=== PATIENT | female | born 1990 | race Caucasian/White ===

== ENCOUNTER 2019-10-04 12:24 | Outpatient (CLI) | payer OTHER, SELFPAY ==
[2019-10-04 13:04] VITALS: BP 137/87; PULSE 78
[2019-10-04 13:16] VITALS: BP 137/84; PULSE 72
[2019-10-04 13:24] LABS: Basophils Percent Auto 0.3 % (0.2-1.2); Eosinophils Absolute Auto 0.1 K/mm3 (0-0.3); Eosinophils Percent Auto 0.7 % (0-4.4); Hematocrit 36.4 % (37.0-47.0); Hemoglobin 11.8 g/dL (12.0-15.0); Immature Granulocyte Absolute 0.06 K/mm3 (0.00-0.031); Immature Granulocyte Percent A 0.6 % (0-0.5); Lymphocytes Absolute Auto 2.11 K/mm3 (0.9-3.2); Lymphocytes Percent Auto 19.5 % (18.3-44.2); Mean Corpuscular HGB Conc 32.4 g/dl (32-36); Mean Corpuscular Hemoglobin 27.9 pg (26-34); Mean Corpuscular Volume 86.1 fl (80-100); Mean Platelet Volume 11.5 fl (7.4-10.4); Monocytes Absolute Auto 1.2 K/mm3 (0.1-0.6); Monocytes Percent Auto 10.7 % (2.6-8.5); Neutrophils Absolute Auto 7.4 K/mm3 (1.3-6.7); Neutrophils Percent Auto 68.2 % (45.5-73.1); Platelet Count Result 256 k/mm3 (150-375); Red Blood Count 4.23 M/mm3 (4.2-5.4); Red Cell Distribution Width 13.2 % (11.5-14.5); White Blood Count 10.8 K/mm3 (4.5-10.0)
[2019-10-04 13:29] LABS: Add Urine Microscopic? YES; Appearance Urine Clear (Clear); Bacteria Urine Trace /hpf; Bilirubin Urine Negative (Negative); Blood Urine Negative (Negative); Color Urine Yellow (Yellow); Glucose Urine UA Negative (Negative); Ketones Urine Trace mg/dL (Negative); Leukocyte Esterase Ur Negative LEU/UL (NEGATIVE); Mucus Urine Rare /lpf; Nitrate Urine Negative (Negative); Protein Urine Negative (Negative); RBC Urine 0-2 /hpf (0-2); Specific Grav Ur 1.016 (1.001-1.035); Squamous Epithelial Cell Urine Many /hpf (Few); Urobilinogen Urine Negative mg/dL (<2.0); WBC Urine 0-3 /hpf (0-3)
[2019-10-04 13:31] VITALS: BP 134/81; PULSE 71
[2019-10-04 13:36] LABS: Alanine Aminotransferase 17 U/L (4-35); Albumin Level 3.3 g/dL (3.5-5.1); Alkaline Phosphatase 130 U/L (38-126); Aspartate Amino Transferase 30 U/L (14-36); Bilirubin,Total 0.4 mg/dL (0.2-1.3); Blood Urea Nitrogen 5 mg/dL (7-17); Calcium 9.1 mg/dL (8.4-10.2); Carbon Dioxide 21 mmol/L (22-30); Chloride 104 mmol/L (98-107); Estimated Glomerular Filt Rate > 60; Glucose 109 mg/dL (65-105); Potassium 3.7 mmol/L (3.4-5.0); Sodium 134 mmol/L (137-145); Uric Acid 4.2 mg/dL (2.5-7.5)
[2019-10-04 13:44] VITALS: BMI 39.2
[2019-10-04 13:45] VITALS: TEMP 36.6
[2019-10-04 13:46] VITALS: BP 146/87; PULSE 73
[2019-10-04 14:01] VITALS: BP 138/83; PULSE 77
--- NOTE | 2019-10-04 15:20 | P.PNOB_ITS ---
OB - Triage/Final Diagnosis Visit Information Date of evaluation: 10/04/19 Reason for evaluation: other (headache) Evaluation Laboratory results: Laboratory Tests 10/04/19 10/04/19 10/04/19 12:55 12:55 12:55 WBC 10.8 H RBC 4.23 Hgb 11.8 L Hct 36.4 L MCV 86.1 MCH 27.9 MCHC 32.4 RDW 13.2 Plt Count 256 MPV 11.5 H Immature Gran % (Auto) 0.6 H Neut % (Auto) 68.2 Lymph % (Auto) 19.5 [place] % (Auto) 10.7 H Eos % (Auto) 0.7 Baso % (Auto) 0.3 Lymph # (Auto) 2.11 [place] # (Auto) 1.2 H Eos # (Auto) 0.1 Baso # (Auto) 0.0 Abs Immat Gran (auto) 0.06 H Absolute Neuts (auto) 7.4 H Absolute Nucleated RBC 0.0 Nucleated RBC % 0.0 Sodium 134 L Potassium 3.7 Chloride 104 Carbon Dioxide 21 L BUN 5 L Creatinine 0.50 L Estim Creat Clear Calc Not Reportable Estimated GFR > 60 Glucose 109 H Uric Acid 4.2 Calcium 9.1 Total Bilirubin 0.4 AST 30 ALT 17 Alkaline Phosphatase 130 H Total Protein 7.0 Albumin 3.3 L Urine Color Yellow Urine Appearance Clear Urine pH 6.0 Ur Specific [place] 1.016 Urine Protein Negative Urine Glucose (UA) Negative Urine Ketones Trace Ur Blood (Man) Negative Urine Nitrate Negative Urine Bilirubin Negative Urine Urobilinogen Negative Ur Leukocyte Esterase Negative Urine RBC 0-2 Urine WBC 0-3 Ur Squamous Epith Cells Many H Urine Bacteria Trace Hyaline Casts 1-2 Urine Mucus Rare Vital signs: Vital Signs - 24 hr 10/04/19 13:04 10/04/19 13:16 10/04/19 13:31 Temperature Pulse Rate 78 72 71 Blood Pressure 137/87 137/84 134/81 10/04/19 13:45 10/04/19 13:46 10/04/19 14:01 Temperature 36.6 C Pulse Rate 73 77 Blood Pressure 146/87 H 138/83
== END 2019-10-04 14:00 | disposition home or self-care (01) ==
LOC: ANHOBOP 12:43 → ANHOBPP 12:44
PROVIDERS: Student in an Organized Health Care Education/Training Program; PCP Nurse Practitioner Family; Visit Provider Obstetrics & Gynecology
DX: O13.9 Gestational [pregnancy-induced] hypertension without significant proteinuria, unspecified trimester (principal); R51 Headache; Z79.899 Other long term (current) drug therapy; Z79.82 Long term (current) use of aspirin
CPT/HCPCS: 36415; 80053; 81001; 84550; 85025; 87086; 87088; 99199

== ENCOUNTER 2019-10-05 14:26 | Outpatient (CLI) | payer OTHER, SELFPAY ==
[2019-10-05 23:41] LABS: Collection Time Urine 24 HOURS
[2019-10-05 23:58] LABS: Creatinine Urine 35.4 mg/dL
[2019-10-06 00:46] LABS: Total Volume 24 Hour Urine 4250 ml
[2019-10-06 00:53] LABS: Specific Gravity Ur 1.007
[2019-10-06 09:39] LABS: Creatinine Clearance Urine 171.2 ml/min (75-125); Patient Weight 235 Lbs
[2019-10-06 09:49] VITALS: BMI 39.2
[2019-10-06 11:43] LABS: Total Protein Urine 24 Hr 370 mg/24hr (0-149); Total Protein Urine Random 8.7 mg/dL (0.0-11.9)
== END 2019-10-05 14:27 | disposition home or self-care (01) ==
LOC: ANHOBOP 14:56
PROVIDERS: PCP Nurse Practitioner Family; Visit Provider Student in an Organized Health Care Education/Training Program
DX: O13.9 Gestational [pregnancy-induced] hypertension without significant proteinuria, unspecified trimester (principal)
CPT/HCPCS: 81050; 82575; 84156

== ENCOUNTER 2019-10-05 14:26 | Outpatient (CLI) | payer OTHER, SELFPAY ==
[2019-10-05] MEDS: BETAMETHASONE SOD PHOS/ACETATE 30 MG/5 ML VIAL 12 MG IM (15:45)
== END 2019-10-05 14:27 | disposition home or self-care (01) ==
LOC: ANHOBOP 14:37
PROVIDERS: PCP Nurse Practitioner Family; Visit Provider Student in an Organized Health Care Education/Training Program
DX: Z36.84 Encounter for antenatal screening for fetal lung maturity (principal)
CPT/HCPCS: 96372; J0702

== ENCOUNTER 2019-10-05 14:26 | Outpatient (RCR) | payer OTHER, SELFPAY ==
[2019-09-11 16:13] VITALS: BP 148/82; PULSE 82
[2019-09-17 18:45] VITALS: BP 141/75; PULSE 78
[2019-09-21 15:56] VITALS: BP 135/71; PULSE 69
[2019-09-28 14:15] LABS: Hematocrit 36.9 % (37.0-47.0); Hemoglobin 12.1 g/dL (12.0-15.0); Mean Corpuscular HGB Conc 32.8 g/dl (32-36); Mean Corpuscular Hemoglobin 28.6 pg (26-34); Mean Corpuscular Volume 87.2 fl (80-100); Platelet Count Result 250 k/mm3 (150-375); Red Blood Count 4.23 M/mm3 (4.2-5.4); Red Cell Distribution Width 13.1 % (11.5-14.5); White Blood Count 10.2 K/mm3 (4.5-10.0)
[2019-09-28 14:23] LABS: Add Urine Microscopic? YES; Appearance Urine Cloudy (Clear); Bacteria Urine 3+ /hpf; Bilirubin Urine Negative (Negative); Color Urine Yellow (Yellow); Glucose Urine UA 1+ mg/dL (Negative); Ketones Urine Trace mg/dL (Negative); Leukocyte Esterase Ur 2+ LEU/UL (Negative); Mucus Urine Rare /lpf; Nitrate Urine Negative (Negative); Protein Urine Negative (Negative); Specific Grav Ur 1.009 (1.001-1.035); Squamous Epithelial Cell Urine Many /hpf (Few); Urobilinogen Urine Negative mg/dL (<2.0); WBC Urine 16-20 /hpf
[2019-09-28 14:25] LABS: Blood Urine Negative (Negative)
[2019-09-28 14:28] LABS: Alanine Aminotransferase 18 U/L (4-35); Albumin Level 3.4 g/dL (3.5-5.1); Alkaline Phosphatase 128 U/L (38-126); Aspartate Amino Transferase 27 U/L (14-36); Bilirubin,Total 0.3 mg/dL (0.2-1.3); Blood Urea Nitrogen 3 mg/dL (7-17); Calcium 8.9 mg/dL (8.4-10.2); Carbon Dioxide 22 mmol/L (22-30); Chloride 101 mmol/L (98-107); Estimated Glomerular Filt Rate > 60; Glucose 127 mg/dL (65-105); Potassium 3.1 mmol/L (3.4-5.0); Sodium 136 mmol/L (137-145); Uric Acid 3.8 mg/dL (2.5-7.5)
[2019-09-28 15:11] VITALS: BP 143/71; PULSE 86
[2019-10-05 16:07] VITALS: BP 133/74; PULSE 73
== END 2019-10-15 07:34 | disposition home or self-care (01) ==
LOC: ANHOBOP 14:26
PROVIDERS: PCP Nurse Practitioner Family; Visit Provider Obstetrics & Gynecology
DX: O16.3 Unspecified maternal hypertension, third trimester (principal); Z3A.32 32 weeks gestation of pregnancy; Z3A.33 33 weeks gestation of pregnancy; Z3A.36 36 weeks gestation of pregnancy; Z3A.37 37 weeks gestation of pregnancy
CPT/HCPCS: 36415; 59025; 80053; 81001; 84550; 85027; 87086; 87088

== ENCOUNTER 2019-10-06 12:56 | Observation (INO) | payer OTHER, SELFPAY ==
[2019-10-06] VITALS (11 sets, daily range): PULSE 69–89; TEMP 36.1; O2SAT 98–100; BMI 39.6
--- NOTE | 2019-10-06 12:56 | OBADM ---
This patient, Lisa Simpson, admitted to the OB room Labor/Delivery/Recovery 120 for observation. Patient/family oriented to hospital policies and general routines including ID bracelet, bed and alarms, visiting hours, pain management, procedures, bathroom and other care routines, personal items, smoking policy, room service/diet, and visiting hours. Patient/Family are encouraged to report perceived risks to care and to ask questions if they do not understand what they are told or what they should do.
[2019-10-06 15:08] LABS: Add Urine Microscopic? YES; Appearance Urine Clear (Clear); Bilirubin Urine Negative (Negative); Blood Urine Negative (Negative); Color Urine Straw (Yellow); Glucose Urine UA Negative (Negative); Ketones Urine Trace mg/dL (Negative); Leukocyte Esterase Ur Negative LEU/UL (NEGATIVE); Mucus Urine Rare /lpf; Nitrate Urine Negative (Negative); Protein Urine Negative (Negative); Specific Grav Ur 1.006 (1.001-1.035); Squamous Epithelial Cell Urine Occasional /hpf (Few); Urobilinogen Urine Negative mg/dL (<2.0); WBC Urine 0-3 /hpf (0-3)
[2019-10-06] MEDS: TERBUTALINE SULFATE 1 MG/ML VIAL 0.25 MG SUB-Q (16:26)
[2019-10-06] MEDS: BETAMETHASONE SOD PHOS/ACETATE 30 MG/5 ML VIAL 12 MG IM (16:27)
--- NOTE | 2019-10-27 08:28 | PM.OBTRLD ---
OB - Triage/Final Diagnosis Evaluation Laboratory results: Laboratory Tests 10/06/19 14:44 Urine Color Straw Urine Appearance Clear Urine pH 6.0 Ur Specific [place] 1.006 Urine Protein Negative Urine Glucose (UA) Negative Urine Ketones Trace Ur Blood (Man) Negative Urine Nitrate Negative Urine Bilirubin Negative Urine Urobilinogen Negative Ur Leukocyte Esterase Negative Urine WBC 0-3 Ur Squamous Epith Cells Occasional Urine Mucus Rare Final Diagnosis (1) contractions: Code(s): O47.9 - False labor, unspecified Status: Acute
== END 2019-10-06 18:15 | disposition home or self-care (01) ==
PROVIDERS: Admitting Provider Obstetrics & Gynecology; PCP Nurse Practitioner Family; Visit Provider Obstetrics & Gynecology
DX: O47.03 False labor before 37 completed weeks of gestation, third trimester (principal); Z3A.36 36 weeks gestation of pregnancy
CPT/HCPCS: 81001; 87086; 96372; G0378; G0379; J0702; J3105

== ENCOUNTER 2019-10-13 09:36 | Outpatient (CLI) | payer OTHER, SELFPAY ==
[2019-10-13 10:15] LABS: Hemoglobin 12.9 g/dL (12.0-15.0); Mean Corpuscular HGB Conc 32.3 g/dl (32-36); Mean Corpuscular Hemoglobin 27.9 pg (26-34); Mean Corpuscular Volume 86.4 fl (80-100); Mean Platelet Volume 11.5 fl (7.4-10.4); Platelet Count Result 286 k/mm3 (150-375); Red Blood Count 4.63 M/mm3 (4.2-5.4); Red Cell Distribution Width 13.5 % (11.5-14.5); White Blood Count 13.2 K/mm3 (4.5-10.0)
[2019-10-14 07:53] LABS: Rapid Plasma Reagin Non-Reactive (NonReactive)
== END 2019-10-13 09:37 | disposition home or self-care (01) ==
PROVIDERS: PCP Nurse Practitioner Family; Visit Provider Obstetrics & Gynecology
DX: Z01.818 Encounter for other preprocedural examination (principal)
CPT/HCPCS: 36415; 85027; 86592; 86850; 86900; 86901

== ENCOUNTER 2019-10-14 09:52 | Inpatient (IN) | payer OTHER, SELFPAY ==
[2019-10-14] VITALS (50 sets, daily range): BP systolic 101–154; BP diastolic 54–101; PULSE 54–107; RESP 14–20; TEMP 36.1–36.9; O2SAT 95–100; BMI 39.6
--- NOTE | 2019-10-14 01:01 | PM.IMHP ---
H&P: HPI History of Present Illness Chief complaint: PREIN Narrative: 29 y/o at 37 1/7 weeks. She has CHTN with worsening bp control, now with superimposed preeclampsia. She received a course of steroids a week ago. I have recommended that she consider delivery after 37 weeks. She has a prior and desires repeat. GBS neg. Opos, Rubella immune, RPR neg, HepBSAg neg, HIV neg. Review of Systems Review of Systems: All systems reviewed & are unremarkable except as noted in HPI and below PMFSH Past Medical History Medical History (Updated 10/14/19 @ 01:12 by Corky Sanders MD) Anxiety associated with depression Fatty liver disease, nonalcoholic Surgical History Surgical History History of delivery Family History Family History Father Mitral valve prolapse Mother Hypertension Social History Social History Substance use: never Gender identity (if verbalized by the patient): Female Spiritual care concerns: No Comments Past OB History: 1) of girl at term weiging 7#2oz. 2) CS twins at 34 weeks with severe preeclampsia. Past SEGREGATOR History: Menarche at 9 with monthly menses. No history of abnormal pap or STI. Meds Home Medications and Allergies Home Medications Medication Instructions Recorded Confirmed Type Adult Probiotic 3,000 mmu cells PO DAILY 07/06/19 09/11/19 History aspirin [Aspirin Low Dose] 81 mg PO DAILY 07/06/19 09/11/19 History azathioprine 150 mg PO DAILY 07/06/19 09/11/19 History cholecalciferol (vitamin D3) 10,000 unit PO WEEKLY 07/06/19 09/11/19 History 23-orrr-cihtpe 9-dha 1 tablet PO DAILY 07/06/19 09/11/19 History ranitidine HCl 75 mg PO DAILY 07/06/19 09/11/19 History Zyrtec 10 mg PO DAILY 09/11/19 09/11/19 History labetalol 200 mg PO Q12H 09/11/19 09/11/19 History Allergies Allergy/AdvReac Type Severity Reaction Status Date / Time pneumococcal vaccine Allergy Swelling Verified 09/11/19 15:49 Exam Const: Orientation/consciousness: patient oriented x3 Other: Well-developed, well-nourished female in no acute distress. Neck: Thyroid: thyroid normal Lymphatic: no lymphadenopathy noted (in neck, axilla or inguinal nodes) Resp: Effort & Inspection: normal respiratory effort Auscultation: clear to auscultation bilaterally Cardio: Rate: regular rate Rhythm: regular rhythm Heart sounds: S1 normal heart sound present and S2 normal heart sound present GI: Other: ABD: Soft, nontender, nondistended. No guarding or rebound tenderness. No hepatosplenomegaly. FHR ausculated. : General: Yes no CVA tenderness Other: External genitalia: normal female hair distribution, without lesion. Cervix: 1/50/-2 Anus/perineum: no lesions, nontender Back/Spine/Pelvis: Back: no CVA tenderness Skin: General skin exam: normal color and no rashes or lesions noted Neuro: General: patient oriented x3 Extrem: Other: Extremities: nontender with no edema Psych: Mental Status: mental status grossly normal Affect: normal affect Assessment and Plan Assessment and plan (1) Pre-eclampsia added to pre-existing hypertension: Code(s): O11.9 - Pre-existing hypertension with pre-eclampsia, unspecified trimester Status: Acute Assessment and Plan: I offered delivery after 37 weeks in light of her worsening disease. She has a prior and desires a repeat. She understands risks of surgery to include risks of anesthesia, risks of pain, infection, bleeding, blood products, thromboembolic phenomena and damage to adjacent structures such as bowel, bladder, ureters, blood vessels and nerves. She understands all these risks and elects to proceed with surgery. (2) History of delivery: Code(s): Z98.891 - History of uterine scar from previous belkis
--- NOTE | 2019-10-14 10:21 | LDADM ---
This patient, Lisa Simpson, was admitted to OB Post 117 on 10/14/19 at 09:52. Plans for repeat section, pain management and were discussed with patient. Patient/family oriented to hospital policies and general routines including ID bracelet, bed and alarms, visiting hours, pain management, procedures, bathroom and other care routines, personal items, smoking policy, room service/diet and guest tray routines, security routines, and visiting hours. Patient/Family are encouraged to report perceived risks to care and to ask questions if they do not understand what they are told or what they should do. See OBIX for further documentation.
[2019-10-14] MEDS: LACTATED RINGERS 1,000 ML 125 ML IV CONT ×2 (10:40→11:53)
--- NOTE | 2019-10-14 11:28 | WPDANESEPPF ---
Anes - Initial Pre Proc Eval Procedure: Operation Date: 10/14/19 12:00 Proposed Procedures p Repeat Section - Corky Sanders MD Date/Time: 10/14/19 11:28 Surgeon: Corky Sanders MD Pre Op Diagnosis: C/S Patient Data Age: 29 Gender: F Height: 5 ft 5 in Weight: 108 kg Last Vital Signs Pulse 74 10/14/19 10:17 BP 131/80 10/14/19 10:17 Allergies Allergy/AdvReac Type Severity Reaction Status Date / Time pneumococcal vaccine Allergy Swelling Verified 09/11/19 15:49 Home Medications Medication Instructions Recorded Confirmed Type Adult Probiotic 3,000 mmu cells PO DAILY 07/06/19 10/14/19 History aspirin [Aspirin Low Dose] 81 mg PO DAILY 07/06/19 10/14/19 History azathioprine 150 mg PO DAILY 07/06/19 10/14/19 History cholecalciferol (vitamin D3) 10,000 unit PO WEEKLY 07/06/19 10/14/19 History 30-wyqm-bedunh 9-dha 1 tablet PO DAILY 07/06/19 10/14/19 History ranitidine HCl 75 mg PO DAILY 07/06/19 10/14/19 History Zyrtec 10 mg PO DAILY 09/11/19 10/14/19 History labetalol 300 mg PO Q12H 09/11/19 10/14/19 History Patient hx anesthesia problems: none Family hx anesthesia problems: none PMFSH Past Medical History Medical History (Updated 10/14/19 @ 01:12 by Corky Sanders MD) Anxiety associated with depression Fatty liver disease, nonalcoholic Surgical History Surgical History History of delivery Family History Family History Father Mitral valve prolapse Mother Hypertension Social History Social History Smoking status: Never smoker Substance use: never Gender identity (if verbalized by the patient): Female Spiritual care concerns: No Anes - Eval Final PreProcedure Day of Procedure 10/14/19 11:28 Patient weight: obese Heart: regular rate and rhythm Lungs: clear to auscultation Airway: Mallampati scale class II Neurological: alert and oriented Last oral intake: >/= 8 hours ASA classification: III Emergent: no Anesthetic plan: proceed Anesthesia type and monitoring: regional spinal and standard monitoring Informed Consent: The patient's anesthetic plan and its attendant risks and benefits were discussed with the patient/family/POA. Questions were solicited and answers provided to the satisfaction of the patient/family/POA.
[2019-10-14] MEDS: ceFAZolin 2 GM/D5W 50 ML 2 GM/50 ML BAG IVPB (12:11)
--- NOTE | 2019-10-14 13:14 | PM.OBPRVD ---
OB - Delivery Note Procedure Delivery date: 10/14/19 Procedure: Procedures Operation Date: 10/14/19 12:00 <No data on this case meets the specified criteria> Repeat LTCS Route of delivery: (Repeat LTCS) Specimen: Yes (cord blood, placenta) Estimated blood loss (mL): 660 Anesthesia type: Spinal Disposition: PACU Complications: None Narrative: The patient was taken to the operating room where she was prepared and draped in the usual sterile fashion in dorsal supine position with a leftward tilt. She received cefazolin preoperatively. Spinal anesthesia was found to be adequate. A Pfannenstiel skin incision was made along the previous scar line and was carried through to the underlying layer of the fascia. The fascia was incised in the midline and the incision was extended laterally. The fascia was dissected free of the underlying rectus muscles. The rectus muscles were in the midline. The peritoneum was identified, tented up and entered sharply. The peritoneal incision was extended superiorly and inferiorly with good visualization of the bladder. The bladder blade was placed. The vesicouterine peritoneum was identified, tented up and entered sharply. The incision was extended laterally and the bladder flap was developed. The bladder blade was replaced. The uterus was then incised sharply in a transverse fashion along the lower uterine segment. The incision was extended laterally. The 's head was delivered atraumatically to the sterile field, followed by the body. The nose and mouth were bulb suctioned. After a delay, the cord was clamped and cut. The infant was handed off the field. Cord blood was collected. The placenta was removed manually and was passed off the field. The uterus was exteriorized and cleared of all clots and debris. The uterine incision was reapproximated using 0 Monocryl in a running, locked fashion. A second layer of the same suture was required for hemostasis. Excellent hemostasis subsequently resulted as did excellent reapproximation of the normal anatomy. The uterus was returned the abdomen. The pelvis was irrigated copiously with warmed normal saline. Rigorous hemostasis was assured. The fascial layer was reapproximated using 0 Vicryl in a running fashion. The skin was closed with a running, subcuticular stitch of 4 0 Vicryl. Dermaflex was applied externally. Sponge, lap, needle and instrument counts were correct. The patient was taken to the recovery room in stable condition. The infant went to the nursery in stable condition. I was present and scrubbed the entire procedure. Baby Date of : 10/14/19 Time of : 12:40 Weeks of gestation at delivery: 37 Infant gender: Female Weight (pounds): 7 Weight (ounces): 10 presentation: vertex Placenta delivery description: Manual Removal and Normal Configuration cord vessel description: 3 Vessels score one minute: 8 score five minutes: 8
--- NOTE | 2019-10-14 13:22 | P.DS_ITS ---
DS: Diagnosis Admitting Diagnosis Admitting Diagnosis: 1) IUP at 37 weeks 2) CHTN with superimposed preeclampsia OB - DS: Summary OB Procedures : None OB Procedures Intrapartum: OB Procedures: : None Peripartum Data Procedures: Repeat LTCS Discharge Plan Discharge Attending physician on discharge: Corky Sanders Discharging Clinician: Corky Sanders Patient Disposition: Home, Self-Care Activity: may shower, may drive after 2 weeks and pelvic rest Diet: regular Wound Care Instructions: incision open to air Discharge Instructions: Call or return if temperature above 100.4? F, increased abdominal pain, increased vaginal bleeding or any new problems. Stand Alone Forms: General Discharge Information Follow-up/Referrals: Corky Sanders MD [Physician] - (4 weeks) Discharge Medications: New hydrocodone-acetaminophen [[place]] 5-325 mg tablet 1 - 2 tablet PO Q6H PRN (Reason: pain) Qty: 30 RF: 0 ibuprofen 600 mg tablet 600 mg PO Q6H PRN (Reason: cramps) Qty: 30 RF: 0 Continued ranitidine HCl 75 mg Tablet 75 mg PO DAILY RF: 0 azathioprine 75 mg Tablet 150 mg PO DAILY RF: 0 cholecalciferol (vitamin D3) 10,000 unit Capsule 10,000 unit PO WEEKLY RF: 0 Adult Probiotic 3 billion cell Capsule 3,000 mmu cells PO DAILY RF: 0 48-cbvr-jdnrfk 9-dha 31 mg iron- 1 mg-200 mg Capsule 1 tablet PO DAILY RF: 0 labetalol 200 mg Tablet 300 mg PO Q12H RF: 0 Zyrtec 10 mg Capsule 10 mg PO DAILY RF: 0 Discontinued aspirin [Aspirin Low Dose] 81 mg Tablet,Delayed Release (Dr/Ec) 81 mg PO DAILY RF: 0 Date of admission: 10/14/19 09:52 Primary Care Provider: DARLYN,KIRA Admitting Provider: Corky Sanders Attending physician on admission: Corky Sanders
[2019-10-14] MEDS: MISOPROSTOL 200 MCG TABLET 1000 MCG RECTAL (15:35)
[2019-10-14] MEDS: IBUPROFEN 600 MG TABLET PO (17:49)
[2019-10-14] MEDS: KCL 20 MEQ/D5/0.45% SOD CHL 1,000 ML 125 ML IV CONT (18:10)
--- NOTE | 2019-10-14 19:45 | OBPPTRN ---
Addendum entered by Falguni Duran RN 10/14/19 19:48: This note should be timed for 1628 on 10/14/19 Original Note: Patient transferred to post room # 284 via stretcher, present. Oriented to unit, room, information board, rooming in, admission packet and security measures. Patient verbalizes understanding.
[2019-10-14] MEDS: DOCUSATE SODIUM 100 MG CAPSULE PO (20:47)
[2019-10-14] MEDS: LABETALOL HCL 100 MG TABLET 300 MG PO (20:47)
[2019-10-15] VITALS (8 sets, daily range): BP systolic 121–155; BP diastolic 61–96; PULSE 65–83; RESP 16–18; TEMP 36.4–37.3; O2SAT 97–98
[2019-10-15] MEDS: IBUPROFEN 600 MG TABLET PO ×4 (01:26→19:37)
[2019-10-15 05:38] LABS: Basophils Absolute Auto 0.1 K/mm3 (0.0-0.1); Basophils Percent Auto 0.4 % (0.2-1.2); Eosinophils Absolute Auto 0.1 K/mm3 (0-0.3); Eosinophils Percent Auto 0.8 % (0-4.4); Hematocrit 32.1 % (37.0-47.0); Hemoglobin 10.5 g/dL (12.0-15.0); Immature Granulocyte Absolute 0.11 K/mm3 (0.00-0.031); Immature Granulocyte Percent A 0.8 % (0-0.5); Lymphocytes Absolute Auto 2.75 K/mm3 (0.9-3.2); Lymphocytes Percent Auto 19.6 % (18.3-44.2); Mean Corpuscular HGB Conc 32.7 g/dl (32-36); Mean Corpuscular Hemoglobin 28.5 pg (26-34); Mean Corpuscular Volume 87.2 fl (80-100); Mean Platelet Volume 11.9 fl (7.4-10.4); Monocytes Absolute Auto 1.4 K/mm3 (0.1-0.6); Monocytes Percent Auto 9.8 % (2.6-8.5); Neutrophils Absolute Auto 9.6 K/mm3 (1.3-6.7); Neutrophils Percent Auto 68.6 % (45.5-73.1); Platelet Count Result 259 k/mm3 (150-375); Red Blood Count 3.68 M/mm3 (4.2-5.4); Red Cell Distribution Width 13.4 % (11.5-14.5)
[2019-10-15] MEDS: LABETALOL HCL 100 MG TABLET 300 MG PO ×2 (05:55→18:00)
[2019-10-15] MEDS: MULTIVIT/MIN/PREN/FOL AC/IRON TABLET 1 TAB PO (08:22)
[2019-10-15] MEDS: DOCUSATE SODIUM 100 MG CAPSULE PO ×2 (08:22→18:00)
[2019-10-15] MEDS: SIMETHICONE 80 MG TAB.CHEW PO (08:26)
[2019-10-15] MEDS: AZATHIOPRINE 50 MG TABLET 150 MG PO (08:27)
--- NOTE | 2019-10-15 08:46 | PM.OBPNVD ---
OB - PN: Subj Subjective Date/time seen: 10/15/19 08:46 Narrative: Pain OK. Voiding. Tolerating diet. OB - PN: Obj Data Labs CBC & Chem 7: 10/15/19 04:42 Labs: Laboratory Results - last 24 hr 10/15/19 04:42 WBC 14.0 H RBC 3.68 L Hgb 10.5 L Hct 32.1 L MCV 87.2 MCH 28.5 MCHC 32.7 RDW 13.4 Plt Count 259 MPV 11.9 H Immature Gran % (Auto) 0.8 H Neut % (Auto) 68.6 Lymph % (Auto) 19.6 [place] % (Auto) 9.8 H Eos % (Auto) 0.8 Baso % (Auto) 0.4 Lymph # (Auto) 2.75 [place] # (Auto) 1.4 H Eos # (Auto) 0.1 Baso # (Auto) 0.1 Abs Immat Gran (auto) 0.11 H Absolute Neuts (auto) 9.6 H Absolute Nucleated RBC 0.0 Nucleated RBC % 0.0 OB - PN A/P Plan Comments: A: POD#1, doing well. CHTN with superimposed preeclampsia. Great diuresis and she is normotensive on labetalol 300 mg po bid. Heavier bleeding yesterday has resolved. P: Routine care. Continue labetalol and monitor bp. Exam Psych: Other: AVSS I/O OK. Diuresing well. ABD soft, nontender, fundus firm. Incision c/d/i. EXT nontender
--- NOTE | 2019-10-15 12:14 | PC.NURSE ---
1115 Pt awakened to nurse baby; she reports sleeping about 2 hours; pt looks more rested and reports feeling better than this a.m.; pain well controlled.
--- NOTE | 2019-10-15 12:45 | WPDANLDPN2 ---
Anes-Prog Note L&D Date/Time: 10/15/19 12:45 Comfortable throughout: section Neuraxial method: spinal Epidural/Spinal procedure site: clean & non-tender Neuro status: Neuro function grossly intact. Cardiovascular status: normal Respiratory status: normal Airway patency: baseline Mental status: baseline Post-Op hydration status: normal Vital Signs: Last Vital Signs Temp 37.3 C 10/15/19 11:10 Pulse 68 10/15/19 11:10 Resp 18 10/15/19 11:10 BP 121/79 10/15/19 11:10 Pulse Ox 98 10/15/19 11:10 I/O: Intake & Output 10/14/19 10/15/19 10/15/19 23:59 07:59 15:59 Intake Total 1000 2960 100 Output Total 200 2750 700 Balance 800 210 -600 Post-procedural complaints: none Patient feedback: Patient satisfied with anesthetic care.
--- NOTE | 2019-10-15 12:46 | WPDANLDNPN2 ---
Anes-Prog Note L&D-Neuraxial Date/Time: 10/15/19 12:46 Neuraxial medications: intrathecal PF morphine Opiod-related complaints: none Patient feedback: Patient satisfied with post-operative pain management.
--- NOTE | 2019-10-15 14:00 | PC.NURSE ---
Consulted with patient, mother has at breast in shallow latch. Reviewed infant feeding cues, frequencies, duration of feedings, feeding elimination flow sheet, and signs of adequate intake. Reviewed positioning/alignment in football, holding breast in C hold and guided asymmetrical latch on. Infant was able to latch correctly. nursed eagerly, with steady draws and occasional swallowing noted. Reviewed signs of a correct latch, effective nursing and suck swallow ratio. Infant was able to maintain latch without discomfort to mother. Nipple care reviewed. Instructed mother to call out for RN assistance if she is unable to latch infant for feeding or she has discomfort with nursing. Instructed feeding should be initiated three hours from start of last feeding or if feeding cues are noted before. Mother voiced understanding of information shared.
[2019-10-16] MEDS: IBUPROFEN 600 MG TABLET PO ×3 (03:41→18:50)
[2019-10-16 04:00] VITALS: BP 153/89; PULSE 72; RESP 16; TEMP 36.4; O2SAT 99
[2019-10-16 05:33] VITALS: BP 144/95; PULSE 60; RESP 16; TEMP 36.6; O2SAT 98
[2019-10-16 05:43] VITALS: PULSE 60
[2019-10-16] MEDS: LABETALOL HCL 100 MG TABLET 300 MG PO ×2 (05:43→18:46)
[2019-10-16] MEDS: DOCUSATE SODIUM 100 MG CAPSULE PO (07:47)
[2019-10-16] MEDS: MULTIVIT/MIN/PREN/FOL AC/IRON TABLET 1 TAB PO (07:47)
[2019-10-16] MEDS: AZATHIOPRINE 50 MG TABLET 150 MG PO (07:48)
[2019-10-16 08:05] VITALS: BP 122/66; PULSE 68; RESP 16; TEMP 36.9; O2SAT 99
--- NOTE | 2019-10-16 11:49 | PM.OBPNVD ---
OB - PN: Subj Subjective Date/time seen: 10/16/19 11:49 Narrative: Pain OK. Tolerating diet. OB - PN: Obj Data Labs CBC & Chem 7: 10/15/19 04:42 OB - PN A/P Plan Comments: A: POD#2, doing well. P: Routine care. Exam Psych: Other: AVSS ABD soft, nontender, fundus firm EXT nontender
--- NOTE | 2019-10-16 13:10 | PC.NURSE ---
Bili results and treatment discussed with parents. Mother will complete and then supplement 15mls and call out when finished with feeding to start bili lights
--- NOTE | 2019-10-16 13:15 | PC.NURSE ---
Upon entering observed mother is able to independently latch with appropriate positioning/alignment. She denies any nipple discomfort, is feeding as required and waking infant to feed if needed. Infant was able to latch correctly. nursed eagerly, with steady draws and occasional swallowing noted. Reviewed signs of a correct latch, effective nursing and suck swallow ratio. was able to maintain latch without discomfort to mother. Nipple care reviewed.
[2019-10-16 18:46] VITALS: PULSE 70
[2019-10-16 21:47] VITALS: BP 137/68; PULSE 75; RESP 12; TEMP 37.2
[2019-10-17] MEDS: IBUPROFEN 600 MG TABLET PO ×2 (05:01→11:42)
[2019-10-17 07:00] VITALS: BP 153/90; PULSE 76; RESP 18; TEMP 36.9; O2SAT 100
[2019-10-17 07:05] VITALS: PULSE 76
[2019-10-17] MEDS: LABETALOL HCL 100 MG TABLET 300 MG PO (07:05)
[2019-10-17] MEDS: AZATHIOPRINE 50 MG TABLET 150 MG PO (09:17)
[2019-10-17] MEDS: DOCUSATE SODIUM 100 MG CAPSULE PO (09:17)
[2019-10-17] MEDS: MULTIVIT/MIN/PREN/FOL AC/IRON TABLET 1 TAB PO (09:17)
--- NOTE | 2019-10-17 09:28 | PM.OBPNVD ---
OB - PN: Subj Subjective Date/time seen: 10/17/19 09:28 Narrative: Pain OK. Tolerating diet. Would like to go home. OB - PN: Obj Data Labs CBC & Chem 7: 10/15/19 04:42 OB - PN A/P Plan Comments: A: POD#3, doing well. BP stable on labetalol 300 mg po bid. P: Home to f/u 4 weeks. Exam Psych: Other: AVSS ABD soft, nontender, fundus firm. Incision c/d/i. EXT nontender
[2019-10-19 10:34] VITALS: BP 169/103; PULSE 88; RESP 18; TEMP 36.6
== END 2019-10-17 13:26 | disposition home or self-care (01) | DRG 787 ==
LOC: ANHOBPP 13:56 → ANHOB2 17:05
PROVIDERS: Admitting Provider Obstetrics & Gynecology; PCP Nurse Practitioner Family; Visit Provider Obstetrics & Gynecology
PROC: 10D00Z1 Extraction of Products of Conception, Low, Open Approach (ICD-10-PCS; CPT 59514; principal; 2019-10-14 12:00)
DX: O34.211 Maternal care for low transverse scar from previous cesarean delivery (principal); O26.613 Liver and biliary tract disorders in pregnancy, third trimester; Z3A.37 37 weeks gestation of pregnancy; Z37.0 Single live birth; Z23 Encounter for immunization; O11.4 Pre-existing hypertension with pre-eclampsia, complicating childbirth; F41.8 Other specified anxiety disorders; K76.0 Fatty (change of) liver, not elsewhere classified; O69.82X0 Labor and delivery complicated by other cord entanglement, without compression, not applicable or unspecified; O99.343 Other mental disorders complicating pregnancy, third trimester
CPT/HCPCS: 36415; 85025; 88307; A9270; J0131; J0690; J1200; J2274; J2370; J2405; J2590; J3010; J3480; J7120

== ENCOUNTER 2019-10-21 12:54 | Observation (INO) | payer OTHER, SELFPAY ==
[2019-10-21] VITALS (33 sets, daily range): BP systolic 125–165; BP diastolic 71–107; PULSE 54–85; RESP 14–18; TEMP 36.8–36.9; O2SAT 100
[2019-10-21 13:29] LABS: Basophils Absolute Auto 0.1 K/mm3 (0.0-0.1); Basophils Percent Auto 0.6 % (0.2-1.2); Eosinophils Absolute Auto 0.1 K/mm3 (0-0.3); Eosinophils Percent Auto 1.7 % (0-4.4); Hematocrit 33.4 % (37.0-47.0); Hemoglobin 10.7 g/dL (12.0-15.0); Immature Granulocyte Absolute 0.01 K/mm3 (0.00-0.031); Immature Granulocyte Percent A 0.1 % (0-0.5); Lymphocytes Absolute Auto 1.61 K/mm3 (0.9-3.2); Lymphocytes Percent Auto 20.7 % (18.3-44.2); Mean Corpuscular Hemoglobin 28.5 pg (26-34); Mean Corpuscular Volume 89.1 fl (80-100); Mean Platelet Volume 9.3 fl (7.4-10.4); Monocytes Absolute Auto 0.7 K/mm3 (0.1-0.6); Monocytes Percent Auto 8.6 % (2.6-8.5); Neutrophils Absolute Auto 5.3 K/mm3 (1.3-6.7); Neutrophils Percent Auto 68.3 % (45.5-73.1); Platelet Count Result 431 k/mm3 (150-375); Red Blood Count 3.75 M/mm3 (4.2-5.4); Red Cell Distribution Width 13.2 % (11.5-14.5); White Blood Count 7.8 K/mm3 (4.5-10.0)
[2019-10-21 13:43] LABS: Alanine Aminotransferase 57 U/L (4-35); Albumin Level 3.7 g/dL (3.5-5.1); Alkaline Phosphatase 121 U/L (38-126); Aspartate Amino Transferase 94 U/L (14-36); Bilirubin,Total 0.7 mg/dL (0.2-1.3); Blood Urea Nitrogen 12 mg/dL (7-17); Carbon Dioxide 25 mmol/L (22-30); Chloride 99 mmol/L (98-107); Estimated Glomerular Filt Rate > 60; Glucose 84 mg/dL (65-105); Potassium 4.2 mmol/L (3.4-5.0); Sodium 139 mmol/L (137-145); Uric Acid 5.6 mg/dL (2.5-7.5)
--- NOTE | 2019-10-21 14:22 | PC.NURSE ---
1253-Pt sent down from office d/t elevated bp and headache. PIH orders received and fioricet order.
--- NOTE | 2019-10-21 14:23 | PC.NURSE ---
1405- called,read lab results and bp's. Informed pt wants to go home and states she is ok not waiting for fioricet. Order received to keep pt and give 2 tabs of fioricet, will call back for upate.
--- NOTE | 2019-10-21 16:00 | PM.IMHP ---
H&P: HPI History of Present Illness Chief complaint: PIH Narrative: CC: headache 29 y/o POD#7 after delivery. Has CHTN, history of severe preeclampsia in a previous . Came to the office for bp check today and mentioned a headache since yesterday morning, with some floaters, but no other visual disturbance. No epigastric pain. Swelling OK. Abdominal pain ok. Bleeding minimal. . Baby doing very well. Review of Systems Review of Systems: All systems reviewed & are unremarkable except as noted in HPI and below PMFSH Past Medical History Medical History Anxiety associated with depression Fatty liver disease, nonalcoholic Surgical History Surgical History History of delivery Family History Family History Father Mitral valve prolapse Mother Hypertension Social History Social History Smoking status: Never smoker Substance use: never Gender identity (if verbalized by the patient): Female Spiritual care concerns: No Meds Home Medications and Allergies Home Medications Medication Instructions Recorded Confirmed Type Adult Probiotic 3,000 mmu cells PO DAILY 07/06/19 10/14/19 History azathioprine 150 mg PO DAILY 07/06/19 10/14/19 History cholecalciferol (vitamin D3) 10,000 unit PO WEEKLY 07/06/19 10/14/19 History 20-rsvw-uyhgds 9-dha 1 tablet PO DAILY 07/06/19 10/14/19 History ranitidine HCl 75 mg PO DAILY 07/06/19 10/14/19 History Zyrtec 10 mg PO DAILY 09/11/19 10/14/19 History labetalol 300 mg PO Q12H 09/11/19 10/14/19 History hydrocodone-acetaminophen [[place]] 1 - 2 tablet PO Q6H PRN #30 tablet 10/17/19 Rx ibuprofen 600 mg PO Q6H PRN #30 tablet 10/17/19 Rx Allergies Allergy/AdvReac Type Severity Reaction Status Date / Time pneumococcal vaccine Allergy Swelling Verified 09/11/19 15:49 Vital Signs Vital Signs - 24 hr 10/21/19 13:22 10/21/19 13:30 10/21/19 13:45 Pulse Rate 72 70 60 Blood Pressure 147/87 H 134/78 145/88 H 10/21/19 14:01 10/21/19 14:15 10/21/19 14:31 Pulse Rate 61 58 L 77 Blood Pressure 147/102 H 155/99 H 165/96 H 10/21/19 14:46 10/21/19 15:02 10/21/19 15:15 Pulse Rate 54 L 65 85 Blood Pressure 140/84 146/75 H 161/84 H 10/21/19 15:31 10/21/19 15:45 Pulse Rate 70 61 Blood Pressure 125/77 132/86 Exam Const: Orientation/consciousness: patient oriented x3 Other: Well-developed, well-nourished female in no acute distress. Neck: Thyroid: thyroid normal Lymphatic: no lymphadenopathy noted (in neck, axilla or inguinal nodes) Resp: Effort & Inspection: normal respiratory effort Auscultation: clear to auscultation bilaterally Cardio: Rate: regular rate Rhythm: regular rhythm Heart sounds: S1 normal heart sound present and S2 normal heart sound present GI: Other: ABD: Soft, nontender, nondistended. No guarding or rebound tenderness. No epigastric or RUQ tenderness. No hepatosplenomegaly. Incision c/d/i. Uterine fundus involuting well. : General: Yes no CVA tenderness Other: Pelvic exam deferred. Back/Spine/Pelvis: Back: no CVA tenderness Skin: General skin exam: normal color and no rashes or lesions noted Neuro: General: patient oriented x3 Other: DTR 3/4, brisk, symmetric in upper and lower extremities bilaterally. Extrem: Other: Extremities: nontender with no edema Psych: Mental Status: mental status grossly normal Affect: normal affect H&P: Results Labs Labs: Short CBC 10/21/19 Range/Units 13:19 WBC 7.8 (4.5-10.0) K/mm3 Hgb 10.7 L (12.0-15.0) g/dL Hct 33.4 L (37.0-47.0) % Plt Count 431 H D (150-375) k/mm3 BMP 10/21/19 13:19 Sodium 139 Potassium 4.2 Chloride 99 Carbon Dioxide 25 BUN 12 D Creatinine 0
[2019-10-21] MEDS: MAGNESIUM SULF 4 GM/WATER100ML 4 GM/100 ML BAG IVPB (16:25)
[2019-10-21] MEDS: LACTATED RINGERS 1,000 ML 75 ML IV CONT (16:26)
--- NOTE | 2019-10-21 16:46 | PC.NURSE ---
2665- on unit,reviewed bp's talked with pt about POC. orders received to start magnesium sulfate
[2019-10-21] MEDS: MAGNESIUM SULF 20GM/WATER500ML 500 ML 50 MG IV CONT (17:14)
--- NOTE | 2019-10-21 19:32 | OBADM ---
This patient, Lisa Simpson, admitted to the OB room OB Post 113 for observation. Patient/family oriented to hospital policies and general routines including ID bracelet, bed and alarms, visiting hours, pain management, procedures, bathroom and other care routines, personal items, smoking policy, room service/diet, and visiting hours. Patient/Family are encouraged to report perceived risks to care and to ask questions if they do not understand what they are told or what they should do.
[2019-10-21] MEDS: LABETALOL HCL 100 MG TABLET 300 MG PO (21:01)
[2019-10-21 21:57] LABS: Add Urine Microscopic? YES; Appearance Urine Clear (Clear); Bilirubin Urine Negative (Negative); Blood Urine 2+ (Negative); Color Urine Straw (Yellow); Glucose Urine UA Negative (Negative); Ketones Urine Negative (Negative); Leukocyte Esterase Ur Trace LEU/UL (NEGATIVE); Mucus Urine Rare /lpf; Nitrate Urine Negative (Negative); Protein Urine Negative (Negative); Squamous Epithelial Cell Urine Occasional /hpf (Few); Urobilinogen Urine Negative mg/dL (<2.0)
[2019-10-22] VITALS (17 sets, daily range): BP systolic 117–141; BP diastolic 65–94; PULSE 52–77; RESP 18; TEMP 36.4–37; O2SAT 100
[2019-10-22] MEDS: MAGNESIUM SULF 20GM/WATER500ML 500 ML 50 MG IV CONT (03:36)
[2019-10-22 05:02] LABS: Basophils Absolute Auto 0.1 K/mm3 (0.0-0.1); Basophils Percent Auto 0.8 % (0.2-1.2); Eosinophils Absolute Auto 0.2 K/mm3 (0-0.3); Eosinophils Percent Auto 2.5 % (0-4.4); Hematocrit 36.6 % (37.0-47.0); Hemoglobin 11.6 g/dL (12.0-15.0); Immature Granulocyte Absolute 0.02 K/mm3 (0.00-0.031); Immature Granulocyte Percent A 0.3 % (0-0.5); Lymphocytes Absolute Auto 2.16 K/mm3 (0.9-3.2); Lymphocytes Percent Auto 30.3 % (18.3-44.2); Mean Corpuscular HGB Conc 31.7 g/dl (32-36); Mean Corpuscular Hemoglobin 27.8 pg (26-34); Mean Corpuscular Volume 87.8 fl (80-100); Mean Platelet Volume 8.8 fl (7.4-10.4); Monocytes Absolute Auto 0.7 K/mm3 (0.1-0.6); Monocytes Percent Auto 9.8 % (2.6-8.5); Neutrophils Percent Auto 56.3 % (45.5-73.1); Platelet Count Result 443 k/mm3 (150-375); Red Blood Count 4.17 M/mm3 (4.2-5.4); Red Cell Distribution Width 13.3 % (11.5-14.5); White Blood Count 7.1 K/mm3 (4.5-10.0)
[2019-10-22 05:13] LABS: Alanine Aminotransferase 59 U/L (4-35); Alkaline Phosphatase 132 U/L (38-126); Aspartate Amino Transferase 83 U/L (14-36); Bilirubin,Total 0.5 mg/dL (0.2-1.3); Blood Urea Nitrogen 10 mg/dL (7-17); Calcium 8.3 mg/dL (8.4-10.2); Carbon Dioxide 25 mmol/L (22-30); Chloride 102 mmol/L (98-107); Estimated CRCL calculation 134 ml/min; Estimated Glomerular Filt Rate > 60; Glucose 97 mg/dL (65-105); Potassium 3.9 mmol/L (3.4-5.0); Sodium 137 mmol/L (137-145)
[2019-10-22] MEDS: LACTATED RINGERS 1,000 ML 75 ML IV CONT (06:43)
[2019-10-22] MEDS: MULTIVIT/MIN/PREN/FOL AC/IRON TABLET 1 TAB PO (09:00)
[2019-10-22] MEDS: NIFEdipine 30 MG TAB.ER.24 PO (09:00)
[2019-10-22] MEDS: LABETALOL HCL 100 MG TABLET 300 MG PO (09:00)
--- NOTE | 2019-10-22 09:11 | PC.NURSE ---
0855--Dr. Sanders at to see pt., orders to DC magnesium sulfate and IVF's and continue to monitor.
--- NOTE | 2019-10-22 10:56 | PC.NURSE ---
1030--Pt. reports feeling dizzy , v.s. taken, education to pt. re: getting up slowly, calling for help if she need to go to [facility]. Pt. verbalizes understanding.
[2019-10-22] MEDS: IBUPROFEN 600 MG TABLET PO (14:37)
--- NOTE | 2019-10-22 17:17 | P.PNOB_ITS ---
OB - PN: Subj Subjective Date/time seen: 10/22/19 17:17 Narrative: Headache has resolved. Excellent diuresis overnight, so magnesium was stopped. She feels much better and would like to go home. OB - PN: Obj Data Labs CBC & Chem 7: 10/22/19 04:54 10/22/19 04:54 Labs: Laboratory Results - last 24 hr 10/21/19 10/22/19 10/22/19 21:47 04:54 04:54 WBC 7.1 RBC 4.17 L Hgb 11.6 L Hct 36.6 L MCV 87.8 MCH 27.8 MCHC 31.7 L RDW 13.3 Plt Count 443 H MPV 8.8 Immature Gran % (Auto) 0.3 Neut % (Auto) 56.3 Lymph % (Auto) 30.3 [place] % (Auto) 9.8 H Eos % (Auto) 2.5 Baso % (Auto) 0.8 Lymph # (Auto) 2.16 [place] # (Auto) 0.7 H Eos # (Auto) 0.2 Baso # (Auto) 0.1 Abs Immat Gran (auto) 0.02 Absolute Neuts (auto) 4.0 Absolute Nucleated RBC 0.0 Nucleated RBC % 0.0 Sodium 137 Potassium 3.9 Chloride 102 Carbon Dioxide 25 BUN 10 Creatinine 0.60 L Estim Creat Clear Calc 134 Estimated GFR > 60 Glucose 97 Calcium 8.3 L Total Bilirubin 0.5 AST 83 H ALT 59 H Alkaline Phosphatase 132 H Total Protein 8.0 Albumin 4.0 Urine Color Straw Urine Appearance Clear Urine pH 6.0 Ur Specific [place] 1.010 Urine Protein Negative Urine Glucose (UA) Negative Urine Ketones Negative Ur Blood (Man) 2+ H Urine Nitrate Negative Urine Bilirubin Negative Urine Urobilinogen Negative Ur Leukocyte Esterase Trace H Urine RBC 3-5 H Urine WBC 7-9 H Ur Squamous Epith Cells Occasional Urine Mucus Rare OB - PN A/P Assessment and Plan (1) Preeclampsia in period: Code(s): O14.95 - Unspecified pre-eclampsia, complicating the puerperium Status: Acute Assessment and Plan: Home today. Continue labetalol 300 mg po bid and Procardia XL 30 mg po q am. Fioricet for headaches. F/u office next week for another bp check and labs. Instructions and precautions reviewed. Exam Narrative: Exam Narrative: AVSS ABD soft, nontender, fundus firm. Incision c/d/i. EXT nontender NEURO: DTR 3/4 and symmetric in upper and lower extremities bilaterally
--- NOTE | 2019-10-22 17:21 | PM.OBDSVD ---
DS: Diagnosis Admitting Diagnosis Admitting Diagnosis: Headache preeclampsia OB - DS: Summary OB Procedures : PIH Mgmt OB Procedures Intrapartum: OB Procedures: : None DS: Data Data Completed and Pending Labs on day of discharge: Labs from last 24 hours 10/22/19 10/22/19 10/21/19 04:54 04:54 21:47 WBC 7.1 RBC 4.17 L Hgb 11.6 L Hct 36.6 L MCV 87.8 MCH 27.8 MCHC 31.7 L RDW 13.3 Plt Count 443 H MPV 8.8 Immature Gran % (Auto) 0.3 Neut % (Auto) 56.3 Lymph % (Auto) 30.3 [place] % (Auto) 9.8 H Eos % (Auto) 2.5 Baso % (Auto) 0.8 Lymph # (Auto) 2.16 [place] # (Auto) 0.7 H Eos # (Auto) 0.2 Baso # (Auto) 0.1 Abs Immat Gran (auto) 0.02 Absolute Neuts (auto) 4.0 Absolute Nucleated RBC 0.0 Nucleated RBC % 0.0 Sodium 137 Potassium 3.9 Chloride 102 Carbon Dioxide 25 BUN 10 Creatinine 0.60 L Estim Creat Clear Calc 134 Estimated GFR > 60 Glucose 97 Calcium 8.3 L Total Bilirubin 0.5 AST 83 H ALT 59 H Alkaline Phosphatase 132 H Total Protein 8.0 Albumin 4.0 Urine Color Straw Urine Appearance Clear Urine pH 6.0 Ur Specific [place] 1.010 Urine Protein Negative Urine Glucose (UA) Negative Urine Ketones Negative Ur Blood (Man) 2+ H Urine Nitrate Negative Urine Bilirubin Negative Urine Urobilinogen Negative Ur Leukocyte Esterase Trace H Urine RBC 3-5 H Urine WBC 7-9 H Ur Squamous Epith Cells Occasional Urine Mucus Rare Discharge Plan Discharge Attending physician on discharge: Corky Sanders Discharging Clinician: Corky Sanders Patient Disposition: Home, Self-Care Activity: may shower and pelvic rest Diet: regular Wound Care Instructions: incision open to air Discharge Instructions: Call or return if temperature above 100.4? F, increased abdominal pain, increased vaginal bleeding or any new problems. Stand Alone Forms: General Discharge Information Follow-up/Referrals: Corky Sanders MD [Physician] - (next week) Discharge Medications: New [id number]-[id number] [Fioricet] 50-300-40 mg Capsule 1 cap PO Q4H PRN (Reason: Headache) RF: 0 nifedipine [Procardia XL] 30 mg Tablet Extended Release 24hr 30 mg PO QAM RF: 0 ibuprofen 600 mg Tablet 600 mg PO Q6H PRN (Reason: Cramping) RF: 0 KPN Tablet 1 tab PO DAILY RF: 0 labetalol 100 mg Tablet 300 mg PO Q12HR RF: 0 No Action ranitidine HCl 75 mg Tablet 75 mg PO DAILY RF: 0 azathioprine 75 mg Tablet 150 mg PO DAILY RF: 0 cholecalciferol (vitamin D3) 10,000 unit Capsule 10,000 unit PO WEEKLY RF: 0 Adult Probiotic 3 billion cell Capsule 3,000 mmu cells PO DAILY RF: 0 [id number] 9-dha 31 mg iron- 1 mg-200 mg Capsule 1 tablet PO DAILY RF: 0 hydrocodone-acetaminophen [Divide] 5-325 mg tablet 1 - 2 tablet PO Q6H PRN (Reason: pain) Qty: 30 RF: 0 ibuprofen 600 mg tablet 600 mg PO Q6H PRN (Reason: cramps) Qty: 30 RF: 0 labetalol 200 mg Tablet 300 mg PO Q12H RF: 0 Zyrtec 10 mg Capsule 10 mg PO DAILY RF: 0 Date of admission: 10/21/19 12:54 Primary Care Provider: DARLYN,KIRA Admitting Provider: Corky Sanders Attending physician on admission: Corky Sanders
== END 2019-10-22 18:34 | disposition home or self-care (01) ==
LOC: ANHOBOP 13:09 → ANHOBPP 13:10 → ANHOBOP 16:15 → ANHOBPP 16:15
PROVIDERS: Admitting Provider Obstetrics & Gynecology; PCP Nurse Practitioner Family; Visit Provider Obstetrics & Gynecology
DX: O11.5 Pre-existing hypertension with pre-eclampsia, complicating the puerperium (principal); O10.93 Unspecified pre-existing hypertension complicating the puerperium
CPT/HCPCS: 36415; 80053; 81001; 84550; 85025; 96365; 96366; A9270; G0378; G0379; J3475; J7120

== ENCOUNTER 2020-09-29 14:08 | Outpatient (CLI) | payer OTHER, SELFPAY ==
--- NOTE | 2020-09-29 14:12 | ECG_ITS ---
Measurements Intervals [place] Rate: 47 P: 18 AL: 145 QRS: -6 QRSD: 92 T: 29 QT: 400 QTc: 354 Interpretive Statements SINUS BRADYCARDIA INCOMPLETE RIGHT BUNDLE BRANCH BLOCK DELAYED PRECORDIAL R/S TRANSITION BASELINE ARTIFACT- V6 ABNORMAL ECG Electronically Signed On 09-29-2020 14:31:10 [employer] by Tomas Cruz D.O.
[2020-09-29 14:45] LABS: Anion Gap 8 mmol/L (8-16); Blood Urea Nitrogen 16 mg/dL (7-17); Calcium 9.2 mg/dL (8.4-10.2); Carbon Dioxide 30 mmol/L (22-30); Chloride 104 mmol/L (98-107); Estimated Glomerular Filt Rate > 60; Glucose 85 mg/dL (65-105); Potassium 3.9 mmol/L (3.4-5.0); Sodium 142 mmol/L (137-145)
== END 2020-09-29 14:09 | disposition home or self-care (01) ==
PROVIDERS: Anesthesiology; PCP Nurse Practitioner Family; Visit Provider Obstetrics & Gynecology
DX: Z01.818 Encounter for other preprocedural examination (principal); I10 Essential (primary) hypertension; R94.31 Abnormal electrocardiogram [ECG] [EKG]
CPT/HCPCS: 36415; 80048; 93005

== ENCOUNTER → 2020-10-01 00:34 | Outpatient (CLI) | payer OTHER, SELFPAY ==
[2020-10-01 19:49] LABS: SARS-CoV-2 RNA PCR Negative
== END ==
PROVIDERS: PCP Nurse Practitioner Family; Visit Provider Obstetrics & Gynecology
DX: Z01.812 Encounter for preprocedural laboratory examination (principal); Z20.822 Contact with and (suspected) exposure to COVID-19
CPT/HCPCS: C9803; U0003; U0005

== ENCOUNTER 2020-10-05 00:57 | Day surgery (SDC) | payer OTHER, SELFPAY ==
[2020-09-28 16:05] VITALS: BMI 35.0
[2020-10-05] VITALS (12 sets, daily range): BP systolic 126–171; BP diastolic 73–90; PULSE 47–79; RESP 12–20; TEMP 36.8; O2SAT 94–100
[2020-10-05] MEDS: LACTATED RINGERS 1,000 ML 30 ML IV CONT ×3 (10:35→14:14)
[2020-10-05] MEDS: ACETAMINOPHEN 500 MG TABLET 1000 MG PO (10:36)
[2020-10-05] MEDS: KETOROLAC 15 MG/ML VIAL (*BKC) IV PUSH (10:37)
--- NOTE | 2020-10-05 11:13 | WPDANESEPPF ---
Anes - Initial Pre Proc Eval Procedure: Operation Date: 10/05/20 12:00 Proposed Procedures p Laparoscopic Tubal Sterilization With Fallopian Rings - Corky Sanders MD s Hysteroscopy Dilation and Curettage With Lili Ablation - Corky Sanders MD Date/Time: 10/05/20 11:13 Surgeon: Corky Sanders MD Pre Op Diagnosis: Desires Sterilization, Abnormal Bleeding Patient Data Age: 30 Gender: F Height: 5 ft 5 in Weight: 92.9 kg Last Vital Signs Temp 98.2 F 10/05/20 10:06 Pulse 62 10/05/20 10:06 Resp 16 10/05/20 10:06 BP 126/78 10/05/20 10:06 Pulse Ox 98 10/05/20 10:06 Allergies Allergy/AdvReac Type Severity Reaction Status Date / Time pneumococcal vaccine AdvReac Swelling Verified 10/05/20 10:55 Home Medications Medication Instructions Recorded Confirmed Type Adult Probiotic 3,000 mmu cells PO DAILY 07/06/19 10/05/20 History cholecalciferol (vitamin D3) 10,000 unit PO WEEKLY 07/06/19 10/05/20 History ibuprofen 600 mg PO Q6H PRN tablet 10/22/19 10/05/20 Rx prenat.vits,chasidy,jpm-ikio-qdqjg 1 tab PO DAILY tablet 10/22/19 10/05/20 Rx [KPN] lisinopril-hydrochlorothiazide 1 tablet PO DAILY 09/28/20 10/05/20 History ustekinumab [Stelara] See Rx Instructions .ROUTE .COMPLEX 09/28/20 10/05/20 History Patient hx anesthesia problems: none Family hx anesthesia problems: none PMFSH Past Medical History Medical History (Updated 10/05/20 @ 11:17 by Bayron Lopez MD) Anxiety associated with depression Chronic hypertension affecting Fatty liver disease, nonalcoholic Surgical History Surgical History History of delivery Family History Family History Father Mitral valve prolapse Mother Hypertension Social History Social History Smoking status: Never smoker Substance use: never Living arrangements: with family Gender identity (if verbalized by the patient): Female Spiritual care concerns: No Anes - Eval Final PreProcedure Day of Procedure 10/05/20 11:13 Patient weight: obese Heart: regular rate and rhythm Lungs: clear to auscultation Airway: Mallampati scale class II Neurological: alert and oriented Last oral intake: >/= 8 hours ASA classification: III Emergent: no Anesthetic plan: proceed Anesthesia type and monitoring: general ETT and standard monitoring Informed Consent: The patient's anesthetic plan and its attendant risks and benefits were discussed with the patient/family/POA. Questions were solicited and answers provided to the satisfaction of the patient/family/POA.
--- NOTE | 2020-10-05 11:57 | PM.IMHP ---
H&P: HPI History of Present Illness Date/Time: 10/05/20 11:57 Chief Complaint: Tubal ligation Narrative: 30 y/o desiring permanent contraception. Also has heavy menses. She would surgical management. Review of Systems Review of Systems: All systems reviewed & are unremarkable except as noted in HPI and below PMFSH Past Medical History Medical History Anxiety associated with depression Chronic hypertension affecting Fatty liver disease, nonalcoholic History of pre-eclampsia Surgical History Surgical History History of delivery Family History Family History Father Mitral valve prolapse Mother Hypertension Social History Social History Smoking status: Never smoker Substance use: never Living arrangements: with family Gender identity (if verbalized by the patient): Female Spiritual care concerns: No Meds Home Medications and Allergies Home Medications Medication Instructions Recorded Confirmed Type Adult Probiotic 3,000 mmu cells PO DAILY 07/06/19 10/05/20 History cholecalciferol (vitamin D3) 10,000 unit PO WEEKLY 07/06/19 10/05/20 History ibuprofen 600 mg PO Q6H PRN tablet 10/22/19 10/05/20 Rx prenat.vits,chasidy,rnh-nnwx-lmieu 1 tab PO DAILY tablet 10/22/19 10/05/20 Rx [KPN] lisinopril-hydrochlorothiazide 1 tablet PO DAILY 09/28/20 10/05/20 History ustekinumab [Stelara] See Rx Instructions .ROUTE .COMPLEX 09/28/20 10/05/20 History Allergies Allergy/AdvReac Type Severity Reaction Status Date / Time pneumococcal vaccine AdvReac Swelling Verified 10/05/20 10:55 Vital Signs Vital Signs - 24 hr 10/05/20 10:06 Temperature 36.8 C Pulse Rate 62 Respiratory Rate 16 Blood Pressure 126/78 Pulse Oximetry 98 Exam Const: Orientation/consciousness: patient oriented x3 Other: Well-developed, well-nourished female in no acute distress. Neck: Thyroid: thyroid normal Lymphatic: no lymphadenopathy noted (in neck, axilla or inguinal nodes) Resp: Effort & Inspection: normal respiratory effort Auscultation: clear to auscultation bilaterally Cardio: Rate: regular rate Rhythm: regular rhythm Heart sounds: S1 normal heart sound present and S2 normal heart sound present GI: Other: ABD: Soft, nontender, nondistended. No guarding or rebound tenderness. No hepatosplenomegaly. : General: Yes no CVA tenderness Other: External genitalia: normal female hair distribution, without lesion. Urethral meatus: no lesion, non prolapsed. Bladder: no mass, nontender Vagina: well-estrogenized, without lesion or discharge. No cystocele or rectocele. Cervix: no lesion or discharge. Uterus: small, anteverted, freely mobile, nontender Adnexa: no mass or tenderness. Anus/perineum: no lesions, nontender Back/Spine/Pelvis: Back: no CVA tenderness Skin: General skin exam: normal color and no rashes or lesions noted Neuro: General: patient oriented x3 Extrem: Other: Extremities: nontender with no edema Psych: Mental Status: mental status grossly normal Affect: normal affect Assessment and Plan Assessment and plan (1) Menometrorrhagia: Code(s): N92.1 - Excessive and frequent menstruation with irregular cycle Status: Acute Assessment and Plan: She understands there are temporary methods of contraception available to her. She understands that there are nonsurgical options as well as surgical options. She understands that tubal ligation will render her permanently sterile. She understands that there is a failure rate associated with tubal ligation, as well as an inherent ectopic gestation risk. Furthermore, she understands risks of surgery to include risks of anesthesia, risks of pain, infection, bleeding, blood products, throm
--- NOTE | 2020-10-05 12:01 | WPDHPUPDATE1 ---
History and Physical Update Update Date/Time: 10/05/20 12:01 History and Physical has been reviewed, including an updated exam of the patient. There are NO changes in the patient's condition. Risks, benefits, and alternatives have been discussed and questions answered. Patient agrees to proceed with procedure.
--- NOTE | 2020-10-05 13:03 | PM.PROC ---
Procedure Note - Detailed Date of procedure: 10/05/20 Pre-op diagnosis: Desires Sterilization, Abnormal Bleeding Menometrorrhagia Desired sterility Post-op diagnosis: same Procedure performed: Laparoscopic bilateral tubal ligation with Falope rings Hysteroscopy Dilation and sharp curettage Endometrial ablation Description of procedure: The patient was taken to the operating room where general endotracheal anesthesia was administered. She was prepared and draped in the usual sterile fashion in dorsal lithotomy position. The bladder was drained with a red rubber catheter. A sterile speculum was placed into the vagina. The anterior lip of the cervix was grasped with a single-tooth tenaculum. The acorn uterine manipulator was placed. The speculum was withdrawn. Gloves were changed and attention was turned the abdomen. An infraumbilical skin incision was made with a scalpel. The abdomen was tented and a 5mm bladeless trocar was advanced under direct laparoscopic visualization. Pneumoperitoneum was administered using carbon dioxide gas. A survey of the pelvis and abdomen revealed the findings noted above. A second skin incision was made in the midline above the symphysis pubis and an 8mm bladeless trocar was advanced under direct laparoscopic visualization. The fallopian tube on the right side was followed out to the fimbriated end for identification. It was then grasped in the midportion with the Falope ring applicator. The Falope ring was tented applied. A good loop of tube was noted to be distal to the ring. Hemostasis was excellent. The device was reloaded and the contralateral tube was similarly identified and ligated. An excellent application was noted here as well. A total of 3mL of 1% lidocaine was infiltrated into the serosa of the proximal tubes for postoperative anesthesia. The ports were withdrawn. The gas was allowed to escape. The skin incisions were reapproximated using interrupted subcuticular sutures of 4 0 Vicryl. Dermaflex was applied externally. The acorn uterine manipulator was withdrawn and the speculum reintroduced. Ten mL of 1% lidocaine was administered in a paracervical block. The cervix was then gently dilated using Hegar dilators until an 8 mm dilator could be passed. Hysteroscopy was performed using sterile saline as a distention medium. Findings are as noted above. Sharp curettage was then performed, and endometrial curettings were collected on a Telfa pad and passed off to be sent to pathology. Finally, the the Lili device was advanced and endometrial ablation commenced without difficulty. The device was withdrawn and a second look was taken using the hysteroscope. Excellent coverage of the endometrial cavity was noted. The tenaculum was removed. Hemostasis was excellent. Sponge, lap, needle and instrument counts were correct. The patient was awakened and taken to the recovery room in stable condition. I was present and scrubbed through the entire procedure. Implants: Falope rings x 2 Anesthesia: GETA and local (paracervical block) Surgeon: Corky Sanders MD Estimated blood loss (mL): 5 Drains: No Packing: No Pathology: yes (endometrial curettings) Complications: None Condition: stable Disposition: PACU Findings: Right upper quadrant anatomy, vermiform appendix normal-appearing. Uterus, bilateral tubes and ovaries, bilateral round and uterosacral ligaments, anterior and posterior cul-de-sac unremarkable. Endometrial cavity unremarkable. Both tubal ostia seen. Uterus sounded to a depth of 8 cm with a cervical length of 3 cm, giving a subtracted uterine cavity length of 5 cm.
[2020-10-05] MEDS: LIDOCAINE HCL 1% LOCAL INJ 10 ML VIAL 50 ML INFILTRATE (13:07)
[2020-10-05] MEDS: fentaNYL CITRATE INJ (*CRX) 100 MCG/2 ML VIAL 25 MCG IV PUSH ×10 (13:21→15:31)
[2020-10-05] MEDS: oxyCODONE HCL (*CRX) 5 MG TAB IR PO (14:44)
== END 2020-10-05 16:10 | disposition home or self-care (01) ==
PROVIDERS: PCP Nurse Practitioner Family; Visit Provider Obstetrics & Gynecology
PROC: (CPT 58671; principal; 2020-10-05 12:00)
PROC: 0U5B8ZZ Destruction of Endometrium, Via Natural or Artificial Opening Endoscopic (ICD-10-PCS; CPT 58563; 2020-10-05 12:00)
DX: Z30.2 Encounter for sterilization (principal); N92.1 Excessive and frequent menstruation with irregular cycle; F41.8 Other specified anxiety disorders; K76.0 Fatty (change of) liver, not elsewhere classified; I10 Essential (primary) hypertension; E66.9 Obesity, unspecified; Z68.34 Body mass index [BMI] 34.0-34.9, adult
CPT/HCPCS: 58563; 58671; 36415; 80048; 88305; 93005; A4264; A9270; C9803; J0330; J0461; J1100; J1885; J2250; J2405; J2704; J2710; J3010; J7030; J7120; U0003; U0005

== ENCOUNTER 2022-12-30 17:15 | Emergency (ER) | payer OTHER, SELFPAY ==
[2022-12-30 17:29] VITALS: BP 131/75; PULSE 85; RESP 18; TEMP 36.6; O2SAT 99
--- NOTE | 2022-12-30 17:43 | ED.URI ---
HPI - URI/Sore Throat General Chief Complaint: Upper Respiratory Infection Stated Complaint: Ears Irritation/Sore Throat Time Seen by Provider: 12/30/22 17:43 History of Present Illness HPI Narrative: 32-year-old female presented for complaint of sore throat and bilateral ear pain worsening throughout today. Also reports mild nausea and she has had sinus congestion which she attributed to allergies over the past few days. She has taken Sudafed ibuprofen and drank hot tea with temporary relief in symptoms. She denies cough, shortness of breath, wheezing, fevers or chills. Related Data Home Medications Medication Instructions Recorded Confirmed cholecalciferol (vitamin D3) 250 10,000 unit PO WEEKLY 07/06/19 10/05/20 mcg (10,000 unit) capsule lisinopril 10 1 tablet PO DAILY 09/28/20 10/05/20 mg-hydrochlorothiazide 12.5 mg tablet ustekinumab 45 mg/0.5 mL See Rx Instructions .Route .COMPLEX 09/28/20 10/05/20 subcutaneous syringe (Stelara) bupropion HCl 150 mg 24 hr tablet, mg PO 12/30/22 12/30/22 extended release metformin 500 mg tablet mg 12/30/22 Allergies Allergy/AdvReac Type Severity Reaction Status Date / Time pneumococcal vaccine AdvReac Swelling Verified 12/30/22 17:25 Review of Systems Review of Systems: CONSTITUTIONAL: Denies body aches, fever, chills, or sweats. EYES: Denies visual changes, redness, or discharge. ENT: Reports sore throat, rhinorrhea, congestion, otalgia. CARDIOVASCULAR: Denies chest pain, palpitations, or edema. RESPIRATORY: Denies dyspnea. GASTROINTESTINAL: Denies abdominal pain, vomiting, or diarrhea. SKIN: Denies rash, itching, or wounds. MUSCULOSKELETAL: Denies back pain, joint pain, or myalgia. NEUROLOGIC: Denies headache PMFSH Past Medical History Medical History Anxiety associated with depression Chronic hypertension affecting Fatty liver disease, nonalcoholic History of pre-eclampsia Surgical History Surgical History History of delivery Family History Family History Father Mitral valve prolapse Mother Hypertension Social History Social History Smoking status: Never smoker Substance use: never Living arrangements: with family Gender identity (if verbalized by the patient): Female Spiritual care concerns: No Exam Narrative: GENERAL: Ill-appearing, no acute distress. EYES: conjunctivae clear ENT: Mucous membranes moist. TMs pearly collier with normal light reflex bilaterally; no tragal tenderness. Oropharynx erythematous without lesions. Tonsils absent. No drooling, no hoarseness, no trismus, uvula midline. No tripod positioning, hot potato voice, or soft palate swelling. NECK: Supple. No lymphadenopathy CHEST: Clear to auscultation, breath sounds equal. No respiratory distress, speaks in full sentences. HEART: Regular rate and rhythm. No murmur heard. SKIN: Warm, dry, no rash. NEURO: Alert and oriented x3. Course Course Emergency Course: Patient is aware of diagnosis, understands and agrees to treatment plan. Anticipatory guidance given. Patient agrees to follow-up as directed and is aware of reasons to seek care at the emergency department. Portions of this record may have been created with voice recognition software Level of Care: Express Care Visit Vital Signs Vital signs: Vital Signs Temperature 97.8 F 12/30/22 17:29 Pulse Rate 85 12/30/22 17:29 Respiratory Rate 18 12/30/22 17:29 Blood Pressure 131/75 12/30/22 17:29 Pulse Oximetry 99 12/30/22 17:29 Oxygen Delivery Room Air 12/30/22 17:29 Temperature 97.8 F 12/30/22 17:29 Pulse Rate 85 12/30/22 17:29 Respiratory Rate 18 12/30/22 17:29 Blood Pressure 131/75 12/30/22 17:
== END 2022-12-30 17:55 | disposition home or self-care (01) ==
PROVIDERS: Emergency Provider Nurse Practitioner Family; PCP Nurse Practitioner Family
DX: J02.0 Streptococcal pharyngitis (principal); K76.0 Fatty (change of) liver, not elsewhere classified; F41.8 Other specified anxiety disorders
CPT/HCPCS: 87880; 99213; G0463